=== PATIENT | male | born 1985 | race Caucasian/White ===

== ENCOUNTER 2016-10-11 18:22 | Emergency (ER) | payer SELFPAY ==
[~2016-10-11 18:22] MED LIST: BACTRIM DS TABL1 TAB PO; COMPAZINE10 M PO; ERYTHROCIN STE250 MG PO; NO HOME MEDICATION XX; NO MEDS CURRENTLY; NORCO 5-325 TA1 EACH PO; NORCO 5/325 TAB1 TAB PO; PHENERGAN W/CO120 ML PO; TOBRAMYCIN5 ML OP
[2016-10-11] MEDS ORDERED: CILOXAN5 M1 LEFT EYE (19:18)
== END 2016-10-11 19:32 ==
LOC: EDMED 18:22
DX: T15.02XA Foreign body in cornea, left eye, initial encounter (principal); J45.909 Unspecified asthma, uncomplicated; Z87.891 Personal history of nicotine dependence